=== PATIENT | male | born 1950 | race Two or more races ===

== ENCOUNTER → 2018-04-20 06:23 | Outpatient (CLI) | payer OTHER | END | disposition home or self-care (01) | LOC: LAB 06:23 | DX: I10 Essential (primary) hypertension (principal); E11.9 Type 2 diabetes mellitus without complications; E03.8 Other specified hypothyroidism; E78.2 Mixed hyperlipidemia; N40.0 Benign prostatic hyperplasia without lower urinary tract symptoms; M81.0 Age-related osteoporosis without current pathological fracture; J44.9 Chronic obstructive pulmonary disease, unspecified ==

== ENCOUNTER 2018-12-29 11:22 | Outpatient (CLI) | payer OTHER | END 2018-12-29 15:34 | disposition home or self-care (01) | LOC: MRI 11:22 | DX: R31.1 Benign essential microscopic hematuria (principal) | CPT/HCPCS: 72196; 74182 ==